=== PATIENT | female | born 1995 | race Caucasian/White ===

== ENCOUNTER 2018-01-08 19:50 | Emergency (ER) | payer MEDICAID ==
[2018-01-08] MEDS ORDERED: chlordiazePOXIDE 25 MG CAP PO ONE (20:20)
[2018-01-08] MEDS ORDERED: CHLORDIAZEPOXIDE 25MG PREPK#6 BTL TAKEHOME ONE (20:20)
--- NOTE | 2018-01-08 20:24 | EDPHY ---
H & P Stated Complaint: pt in touch with [facility]ps about arc detox, told to come for librium before arc Time Seen by Provider: 01/08/18 20:11 HPI/ROS: CHIEF COMPLAINT: Requesting Librium HISTORY OF PRESENT ILLNESS: The patient is a 22-year-old female brought by her dad who reports that she has had withdrawal symptoms and withdrawal seizures in the past. Last night she was intoxicated and arrested. She spent the night in senior living. Her dad picked her up this morning. They initially went to [facility] where she received IV hydration and anti emetics. She wanted to try to get into a rehab facility. There were no inpatient beds available so they recommended she come to [facility] alcohol [facility]. She called them and they recommended she come 1st the ER to get Librium prepack. She is currently asymptomatic other than states that she has some blurred vision which are typical for her with early signs of withdrawal. No tachycardia or tremors. REVIEW OF SYSTEMS: Constitutional: denies: chills, fever, recent illness, recent injury EENTM: See HPI denies: nose congestion Respiratory: denies: cough, shortness of breath Cardiac: denies: chest pain, irregular heart rate, lightheadedness, palpitations Gastrointestinal/Abdominal: denies: abdominal pain, diarrhea, nausea, vomiting, blood streaked stools Genitourinary: denies: dysuria, frequency, hematuria, pain Musculoskeletal: denies: joint pain, muscle pain Skin: denies: lesions, rash, jaundice, bruising Neurological: denies: headache, numbness, paresthesia, tingling, dizziness, weakness Hematologic/Lymphatic: denies: blood clots, easy bleeding, easy bruising Immunologic/allergic: denies: HIV/AIDS, transplant EXAM: GENERAL: Well-appearing, well-nourished and in no acute distress. HEAD: Atraumatic, normocephalic. EYES: Pupils equal round and reactive to light, extraocular movements intact, sclera anicteric, conjunctiva are normal. ENT: TMs normal, nares patent, oropharynx clear without exudates. Moist mucous membranes. NECK: Normal range of motion, supple without lymphadenopathy or JVD. LUNGS: Breath sounds clear to auscultation bilaterally and equal. No wheezes rales or rhonchi. HEART: Regular rate and rhythm without murmurs, rubs or gallops. ABDOMEN: Soft, nontender, normoactive bowel sounds. No guarding, no rebound. No masses appreciated. BACK: No CVA tenderness, no spinal tenderness, step-offs or deformities EXTREMITIES: Normal range of motion, no pitting or edema. No clubbing or cyanosis. NEUROLOGICAL: Cranial nerves II through XII grossly intact. Normal speech, normal gait. 5/5 strength, normal movement in all extremities, normal sensation PSYCH: Normal mood, normal affect. SKIN: Warm, dry, normal turgor, no visible rashes or lesions. Source: Patient, Family Exam Limitations: No limitations - Medical/Surgical History Hx Asthma: No Hx Chronic Respiratory Disease: No Hx Diabetes: No Hx Cardiac Disease: No Hx Renal Disease: No Hx Cirrhosis: No Hx Alcoholism: Yes Hx HIV/AIDS: No Hx Splenectomy or Spleen Trauma: No Other PMH: etoh abuse - hx of wd, bipolar, bladder surg for reflux as a child - Family History Significant Family History: No pertinent family hx - Social History Smoking Status: Former smoker Alcohol Use: Sober Drug Use: None Constitutional: Initial Vital Signs Temperature (C) 36.7 C 01/08/18 19:53 Heart Rate 86 01/08/18 19:53 Respiratory Rate 18 01/08/18 19:53 Blood Pressure 163/97 H 01/08/18 19:53 O2 Sat (%) 96 01/08/18 19:53 O2 Delivery Mode Room Air Allergies/Adverse Reactions: No Known Allergies Allergy (Unverified 01/08/18 19:58) Home Medications: Medication Instructions Recorded Hydroxyzine HCl 01/08/18 Lamotrigine 01/08/18 Seroquel 01/08/18 Zofran Odt 01/08/18 Medical Decision Making ED Course/Re-evaluation: Patient is not showing signs of serious withdrawal at this time. I will treat her with a dose of Librium and we will sent her to the arc with a Librium prepack. Her dad will take her. They are excited to go. Differential Diagnosis: Partial list of the Differential diagnosis considered include but were not limited to; alcohol withdrawal, anxiety and although unlikely based on the history and physical exam, I also considered infection, head injury. I discussed these differential diagnoses and the plan with the patient as well as the usual and expected course. The patient understands that the diagnosis is provisional and that in medicine we are not always correct and that further workup is often warranted. Usual and customary warnings were given. All of the patient's questions were answered. The patient was instructed to return to the emergency department should the symptoms at all worsen or return, otherwise to followup with the physician as we discussed. - Data Points Medications Given: Discontinued Medications Chlordiazepoxide (Librium 25 Mg Prepack#6) 1 btl TAKEHOME EDNOW ONE Stop: 01/08/18 20:21 Last Admin: 01/08/18 20:35 Dose: 1 btl Chlordiazepoxide HCl (Librium) 25 mg PO EDNOW ONE Stop: 01/08/18 20:21 Last Admin: 01/08/18 20:35 Dose: 25 mg Departure - Departure Disposition: Home, Routine, Self-Care Clinical Impression: Alcoholism Condition: Fair Instructions: Chlordiazepoxide (By mouth), Alcohol Use Disorder (ED) Additional Instructions: [facility] directly [facility]. Referrals: NONE *PRIMARY CARE P,. [Primary Care Provider] - As per Instructions
[2018-01-08 20:42] VITALS: BP 120/106
== END 2018-01-08 20:40 | disposition home or self-care (01) ==
DX: F10.10 Alcohol abuse, uncomplicated (principal); Z87.891 Personal history of nicotine dependence